=== PATIENT | female | born 2000 ===

== ENCOUNTER 2024-03-27 13:42 | Outpatient (REF) | payer BC, SELFPAY ==
--- NOTE | 2024-03-27 13:30 | PAPFT_PTH ---
PATIENT: TEJA Avila LOC: [facility] U#:[id number] AGE/SX: 23/F ROOM: RE03/27/[address]: Graciela Lowry : 2000 BED: DIS: 03/27/2024 SPEC #: [id number] RECD: 03/27/24 17:55 STATUS: KOFI REJuan #: [id number] KYM: 03/27/24 13:[address]: Graciela Lowry DEPT: [facility], 1928–1983 Cytology RECD BY: Nancy Brian ENTERED: 03/27/24 17:55 SP TYPE: PAPFT OT DR: Unknown,Unknown Tissues: 1 - CX/ENDOCX FOR PAP SMEARS Procedures: PAP THIN PREP/[facility] Screening HPV DNA PROBE Comments: [id number] (HPV 16 & 18/45)
[2024-03-28 10:58] LABS: Chlamydia Result Negative (Negative); GC Result Negative (Negative)
== END 2024-03-27 13:43 | disposition home or self-care (01) ==
LOC: LBN 13:42
PROVIDERS: Visit Provider Obstetrics & Gynecology Gynecology
DX: Z11.3 Encounter for screening for infections with a predominantly sexual mode of transmission (principal); Z30.432 Encounter for removal of intrauterine contraceptive device
CPT/HCPCS: 87491; 87591; 88142; 87624